=== PATIENT | male | born 1975 | race Caucasian/White ===

== ENCOUNTER → 2023-09-12 08:59 | Outpatient (CLI) | payer OTHER, SELFPAY ==
--- NOTE | 2023-09-12 09:01 | DI.MRI.S_ITS ---
PROCEDURE: MR CERVICAL SPINE WO CON INDICATIONS: Cervicalgia TECHNIQUE: Noncontrast sagittal T1 spin echo and T2 fast spin echo, sagittal STIR, foraminal oblique sagittal T2 fast spin echo, and axial gradient echo or T2 fast spin echo through the cervical spine. COMPARISON: None. FINDINGS: Image quality: Motion degradation. Alignment and Curvature: Straightening of the normal cervical lordosis. Bone Marrow: Marrow demonstrates normal overall signal. Spinal Cord: Visualized spinal cord has normal size and signal. No cerebellar tonsillar herniation. Paraspinous Soft Tissues: No paravertebral masses. Prevertebral soft tissues are normal in thickness. C2-C3: Disc desiccation. No central canal or neural foraminal stenosis. C3-C4: Disc desiccation and minimal posterior disc osteophyte complex. No central canal stenosis. Mild facet and uncovertebral arthropathy without neural foraminal stenosis. C4-C5: Disc desiccation with minimal posterior disc osteophyte complex. No central canal or neural foraminal stenosis. C5-C6: Disc desiccation with minimal posterior disc osteophyte complex. No central canal or neural foraminal stenosis. C6-C7: Disc desiccation with minimal posterior disc osteophyte complex. No central canal stenosis. Facet and uncovertebral arthropathy. Moderate left neural foraminal stenosis. No right neural foraminal stenosis. C7-T1: No central canal or neural foraminal stenosis. 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 Moderate left neural foraminal stenosis at C6-C7. Otherwise, the central canal neural foramina are patent. Dictated by: bK Cardona M.D. on 09/12/2023 at 10:53 Approved by: Kb Cardona M.D. on 09/12/2023 at 10:57
== END ==
LOC: MRI 09:00
PROVIDERS: PCP Preventive Medicine Aerospace Medicine; Referring Provider Preventive Medicine Aerospace Medicine; Visit Provider Preventive Medicine Aerospace Medicine
DX: M47.22 Other spondylosis with radiculopathy, cervical region (principal); M48.02 Spinal stenosis, cervical region; M54.2 Cervicalgia; R20.2 Paresthesia of skin
CPT/HCPCS: 72141

== ENCOUNTER → 2024-03-26 08:53 | Outpatient (CLI) | payer OTHER, SELFPAY | PROVIDERS: Family Provider Preventive Medicine Aerospace Medicine; PCP Preventive Medicine Aerospace Medicine; Referring Provider Preventive Medicine Aerospace Medicine; Visit Provider Preventive Medicine Aerospace Medicine | DX: R20.2 Paresthesia of skin (principal) | CPT/HCPCS: 95885; 95886; 95910 ==